=== PATIENT | female | born 1950 | race Caucasian/White ===

== ENCOUNTER 2018-08-12 20:55 | Emergency (ER) | payer MEDICARE ==
[~2018-08-12] VITALS: Ht 167.6 cm; Wt 86.5 kg
--- NOTE | 2018-08-12 21:23 | NUR ---
PT OT ROOM PLACED IN A GOWN AND IS AWAITING ERP AND ORDERS.
--- NOTE | 2018-08-12 22:37 | NUR ---
IV ESTABLISHED. LABS DRAWN, SENT TO LAB. URINE SPECIMEN PROVIDED BY PT, SENT TO LAB. AWAITING LAB WORK AND CT. PT RESTING COMFORTABLY ON GURNEY, DENIES ANY NEEDS AT THIS TIME. FAMILY AT BEDSIDE. WILL CONTINUE TO MONITOR.
[2018-08-12 22:45] LABS: CULTURE INDICATED? YES; MICROSCOPIC INDICATED
[2018-08-12 22:45] LABS: BASOPHILS # (AUTO) 0.02 x10^3/uL (0-0.1); BASOPHILS % (AUTO) 0 % (0-1); EOSINOPHILS # (AUTO) 0.05 x10^3/uL (0-0.4); EOSINOPHILS % (AUTO) 0 % (1-7); LYMPHOCYTES # (AUTO) 1.66 x10^3/uL (1-3.4); LYMPHOCYTES % (AUTO) 14 % (22-44); MD NO; MEAN CORPUSCULAR HEMOGLOBIN 31.5 pg (27.0-34.8); MEAN CORPUSCULAR HGB CONC 34.1 g/dL (32.4-35.8); MEAN CORPUSCULAR VOLUME 92.6 fL (80-100); MEAN PLATELET VOLUME 7.4 fL (7.4-10.4); MONOCYTES # (AUTO) 0.62 x10^3/uL (0.2-0.8); MONOCYTES % (AUTO) 5 % (2-9); NEUTROPHILS # (AUTO) 9.93 x10^3/uL (1.8-6.8); NEUTROPHILS % (AUTO) 81 % (42-75); PLATELET COUNT 338 x10^3/uL (130-400); RED BLOOD COUNT 4.27 x10^6/uL (3.82-5.3); RED CELL DISTRIBUTION WIDTH 13.5 % (9.6-15.2)
[2018-08-12 22:58] LABS: ALANINE AMINOTRANSFERASE 64 U/L (12-78); ALBUMIN 3.6 g/dL (3.4-5.0); ANION GAP 9 mmol/L (5-15); CALCIUM 9.4 mg/dL (8.5-10.1); CHLORIDE 108 mmol/L (98-107); CREATININE 0.88 mg/dL (0.55-1.02)
[2018-08-12 23:02] LABS: ALKALINE PHOSPHATASE 107 U/L (45-117); BILIRUBIN,TOTAL 0.7 mg/dL (0.2-1.0); TOTAL PROTEIN 7.2 g/dL (6.4-8.2); TROPONIN I < 0.015 ng/mL (0.000-0.045)
--- NOTE | 2018-08-12 23:11 | NUR ---
PT AMBULATORY TO RESTROOM, STEADY GAIT NOTED.
[2018-08-12] MEDS ORDERED: OMNIPAQUE 350 MG/ML, 100ML BOTTLE ONE (23:20)
[2018-08-12 23:49] VITALS: BP 160/74
[2018-08-13] MEDS ORDERED: MAALOX/HYOSCYAMINE/LIDOCAINE 45 ML BTL PO ONE
[2018-08-13] MEDS ORDERED: MAALOX/HYOSCYAMINE/LIDOCAINE 45 ML BTL ONE (00:01)
--- NOTE | 2018-08-13 00:08 | NUR ---
PT MEDICATED PER EMAR. 5 RIGHTS ADDRESSED.
--- NOTE | 2018-08-13 01:06 | NUR ---
DR. BOWLING AT BEDSIDE RE EVALUATING PT
--- NOTE | 2018-08-13 01:42 | NUR ---
Patient/Caregiver given discharge instructions and they have confirmed that they understand the instructions. Patient ambulatory with steady gait.
== END 2018-08-13 01:44 | disposition home or self-care (01) ==
LOC: ED 23:59
DX: K29.00 Acute gastritis without bleeding (principal); N30.00 Acute cystitis without hematuria
CPT/HCPCS: 36415; 71045; 74177; 80053; 81001; 83690; 84484; 85025; 87077; 87086; 87186; 93005; 99284; Q9967